=== PATIENT | female | born 1955 | race Caucasian/White ===

== ENCOUNTER 2017-12-06 17:54 | Inpatient (IN) | payer BC ==
[2017-12-06] MEDS ORDERED: VANCOMYCIN HCL INJ 1000 MG VIAL IV ONE ×2 (19:36→23:48)
--- NOTE | 2017-12-06 19:39 | ER Document Report ---
ED Medical Screen (RME) - General Chief Complaint: Foot Pain Stated Complaint: TOE PAIN Time Seen by Provider: 12/06/17 19:32 Notes: RAPID MEDICAL EVALUATION DISCLOSURE I have seen this patient as part of a Rapid Medical Evaluation and, if applicable, placed any initially appropriate orders. The patient will be seen and fully evaluated, including a full history and physical exam, by a provider ( in Main ED or Fast Track) when a room becomes available. 62-year-old female PMH diabetes here with complaints of right foot pain and infection. Approximately 5 days ago, she scratched the top of her right big toe and since then she has had progressively worsening redness, swelling, foul smell, and purulent discharge. She has a small ulcer on the bottom of the toe however everything else is a new change. EXAM Right big toe swollen, purulent discharge, moderate erythema, malodorous TRAVEL OUTSIDE OF THE [place] IN LAST 30 DAYS: No - Related Data Allergies/Adverse Reactions: dulaglutide [From Trulicity] Allergy (Verified 12/06/17 19:33) metformin Allergy (Verified 12/06/17 19:32) Penicillins Allergy (Verified 12/06/17 17:58) sitagliptin [From Janumet] Allergy (Verified 12/06/17 19:32) Physical Exam - Vital signs Vitals: Temp Pulse Resp BP Pulse Ox 98.9 F 93 18 178/95 H 94 12/06/17 18:39 12/06/17 18:39 12/06/17 18:39 12/06/17 18:39 12/06/17 18:39 Course - Vital Signs Vital signs: Temp Pulse Resp BP Pulse Ox 98.9 F 93 18 178/95 H 94 12/06/17 18:39 12/06/17 18:39 12/06/17 18:39 12/06/17 18:39 12/06/17 18:39
[2017-12-06 20:48] LABS: ABSOLUTE BASOPHILS # (AUTO) 0.1 10^3/uL (0.0-0.2); ABSOLUTE EOSINOPHILS # (AUTO) 0.3 10^3/uL (0.0-0.6); ABSOLUTE LYMPHOCYTES (AUTO) 1.4 10^3/uL (0.5-4.7); ABSOLUTE NEUT (AUTO) 7.9 10^3/uL (1.7-8.2); BASOPHILS % (AUTO) 0.5 % (0-2); EOSINOPHILS % (AUTO) 2.5 % (0-6); HEMATOCRIT 42.6 % (36.0-47.0); LYMPHOCYTES % (AUTO) 13.3 % (13-45); MEAN CORPUSCULAR HEMOGLOBIN 27.3 pg (27.0-33.4); MEAN CORPUSCULAR HGB CONC 32.9 g/dL (32.0-36.0); MEAN CORPUSCULAR VOLUME 83 fl (80-97); MONOCYTES % (AUTO) 9.3 % (3-13); PLATELET COUNT 298 10^3/uL (150-450); RED BLOOD COUNT 5.14 10^6/uL (3.72-5.28); RED CELL DISTRIBUTION WIDTH 14.4 % (11.5-14.0); SEGMENTED NEUTROPHILS % (AUTO) 74.4 % (42-78); TOTAL CELLS COUNTED % (AUTO) 100 %; WHITE BLOOD COUNT 10.7 10^3/uL (4.0-10.5)
[2017-12-06 21:06] LABS: ANION GAP 13 (5-19); BLOOD UREA NITROGEN 8 mg/dL (7-20); CALCIUM 9.3 mg/dL (8.4-10.2); CARBON DIOXIDE 32 mmol/L (22-30); CHLORIDE 97 mmol/L (98-107); GLUCOSE 214 mg/dL (75-110); POTASSIUM 4.1 mmol/L (3.6-5.0); SODIUM 141.9 mmol/L (137-145)
[2017-12-06 21:26] LABS: ERYTHROCYTE SEDIMENTATION RATE 57 mm/hr (0-30)
--- NOTE | 2017-12-06 22:35 | RADIOLOGY REPORT (SQ) ---
EXAM DESCRIPTION: FOOT LEFT COMPLETE COMPLETED DATE/TIME: 12/06/2017 9:22 pm REASON FOR STUDY: L big toe diabetic infection; osteomyelitis? COMPARISON: None. NUMBER OF VIEWS: Three views left foot LIMITATIONS: None. FINDINGS: Great toe MP DJD and hallux valgus. Pes planus. Soft tissue wound or ulcer along the gre at toe distally. No bone resorption. OTHER: No other significant finding. IMPRESSION: Soft tissue findings as above, consistent with the history of ulcer. No underlying oste omyelitis. Degenerative great toe changes are otherwise noted. TECHNICAL DOCUMENTATION: JOB ID: [id number] Reading location - IP/workstation name: [facility] PRODUCTION MANAGER-[email or web address]
[2017-12-06] MEDS ORDERED: CEFEPIME 2 GM/D5W RTU 2 GM/50 ML RTUPB IV ONE (23:48)
--- NOTE | 2017-12-06 23:55 | ER Document Report ---
ED General - General Chief Complaint: Foot Pain Stated Complaint: TOE PAIN Time Seen by Provider: 12/06/17 19:32 Notes: Patient is a 62-year-old female with a past medical history insulin-dependent diabetes, morbid obesity, who presents with per her report 4 days of progressively worsening wound to her left great toe. The patient reports that she scratched the top of her toe 4 days ago and since that time has had rapid progression of swelling, drainage and erythema to the toe with spreading redness onto the dorsum of her foot and now onto the tibial surface of her leg. She denies any associated fever or constitutional symptoms but notes that she has been alarmed by the rapidity with which the infection has spread. She was seen in urgent care today and referred to the emergency department due to the appearance of her toe. She denies any history of similar illness in the past. She states that she has been taking all medications as directed. She states that she has minimal sensation to her feet so she has only noted a mild, dull, aching pain to the area worsens when she walks or touches the area. Nothing improves that discomfort. She has noted significant drainage and odor from the wound on the left toe. TRAVEL OUTSIDE OF THE [place] IN LAST 30 DAYS: No - Related Data Allergies/Adverse Reactions: dulaglutide [From Trulicity] Allergy (Verified 12/06/17 19:33) metformin Allergy (Verified 12/06/17 19:32) Penicillins Allergy (Verified 12/06/17 17:58) sitagliptin [From Janumet] Allergy (Verified 12/06/17 19:32) Past Medical History - General Information source: Patient - Social History Smoking Status: Never Smoker Chew tobacco use (# tins/day): No Frequency of alcohol use: None Drug Abuse: None Lives with: Alone Family History: Reviewed & Not Pertinent Patient has suicidal ideation: No Patient has homicidal ideation: No Renal/ Medical History: Denies: Hx Peritoneal Dialysis Review of Systems - Review of Systems Notes: Constitutional: Negative for fever. HENT: Negative for sore throat. Eyes: Negative for visual changes. Cardiovascular: Negative for chest pain. Respiratory: Negative for shortness of breath. Gastrointestinal: Negative for abdominal pain, vomiting or diarrhea. Genitourinary: Negative for dysuria. Musculoskeletal: Negative for back pain. Skin: Positive for cellulitis with an associated open wound of the left great toe Neurological: Negative for headaches, weakness or numbness. 10 point ROS negative except as marked above and in HPI. Physical Exam - Vital signs Vitals: Temp Pulse Resp BP Pulse Ox 98.9 F 93 18 178/95 H 94 12/06/17 18:39 12/06/17 18:39 12/06/17 18:39 12/06/17 18:39 12/06/17 18:39 Interpretation: Hypertensive Notes: PHYSICAL EXAMINATION: GENERAL: Well-appearing, well-nourished and in no acute distress. HEAD: Atraumatic, normocephalic. EYES: Pupils equal round and reactive to light, extraocular movements intact, sclera anicteric, conjunctiva are normal. ENT: nares patent, oropharynx clear without exudates. Moist mucous membranes. NECK: Normal range of motion, supple without lymphadenopathy LUNGS: Breath sounds clear to auscultation bilaterally and equal. No wheezes rales or rhonchi. HEART: Regular rate and rhythm without murmurs ABDOMEN: Soft, morbidly obese abdomen, nontender, normoactive bowel sounds. No guarding, no rebound. No masses appreciated. EXTREMITIES: Normal range of motion, no pitting or edema. No cyanosis. NEUROLOGICAL: No focal neurological deficits. Moves all extremities spontaneously and on command. PSYCH: Normal mood, normal affect. SKIN: Warm, Dry, normal turgor, there is an open wound to the medial aspect of the left distal great toe with an underlying pressure ulcer on the plantar surface of the great toe. There is extensive liquefactive necrosis overlying the wound with drainage of a akers, brownish purulent discharge that is extremely malodorous. There is erythema extending from the toe over the entirety of the dorsum of the foot up to the distal one third of the tibial surface Course - Re-evaluation Re-evalutation: 12/06/17 23:49 Patient presents with what appears to be liquefactive necrosis of the left great toe with associated cellulitis that has spread up to her mid tibial surface. Patient is otherwise nontoxic in appearance, vitals within acceptable limits, mild leukocytosis to 10.8. I am fearful that the patient will require imitation of this toe as it appears to be markedly infected. We will start coverage for Pseudomonas as well as MRSA with vancomycin as well as cefepime. I have discussed with the surgeon professor of economics Dr. Rapp and expressed my concern that this will require surgical management for source control and will discuss with the hospitalist for admission. 12/07/17 00:00 Dr. Rapp has come to the bedside to assess the toe and will debride the wound. He states the patient may be admitted to the hospitalist thereafter - Vital Signs Vital signs: Temp Pulse Resp BP Pulse Ox 98.9 F 68 20 157/94 H 100 12/07/17 02:15 12/07/17 02:15 12/07/17 02:15 12/07/17 02:15 12/07/17 02:15 - Laboratory Result Diagrams: 12/06/17 20:10 12/06/17 20:10 Laboratory results interpreted by me: 12/06/17 12/06/17 20:10 20:10 WBC 10.7 H RDW 14.4 H ESR 57 H Chloride 97 L Carbon Dioxide 32 H Creatinine 0.49 L Glucose 214 H - Diagnostic Test Radiology reviewed: Image reviewed, Reports reviewed Radiology results interpreted by me: 12/06/17 23:51 Left foot x-ray: No evidence of osteomyelitis Discharge - Discharge Clinical Impression: Cellulitis of left foot Diabetes Qualifiers: Diabetes mellitus type: type 2 Diabetes mellitus residential insulin use: without laborer marine terminal use Diabetes mellitus complication status: with skin complications Diabetes mellitus complication detail: with other skin ulcer Qualified Code(s): E11.622 - Type 2 diabetes mellitus with other skin ulcer Open wound of left great toe Qualifiers: Encounter type: initial encounter Qualified Code(s): S91.102A - Unspecified open wound of left great toe without damage to nail, initial encounter Condition: Fair Disposition: ADMITTED INPATIENT Admitting Provider: Hospitalist Unit Admitted: Medical Floor
[2017-12-07] MEDS ORDERED: DEXTROSE 50%-WATER 25 GM/50 ML DISP.SYRIN IV PRN ×2 (00:17)
[2017-12-07] MEDS ORDERED: DEXTROSE 40% GEL 15 GM TUBE PO PRN ×2 (00:17)
[2017-12-07] MEDS ORDERED: GLUCAGON,HUMAN RECOMB 1 MG INJ IM PRN (00:17)
--- NOTE | 2017-12-07 00:37 | Operative Report ---
Operative Report DATE OF SURGERY: 12/07/17 PREOPERATIVE DIAGNOSIS: Liquefied necrosis left great toe POSTOPERATIVE DIAGNOSIS: Same OPERATION: Limited excisional debridement left great toe SURGEON: JANET DHILLON ANESTHESIA: Other TISSUE REMOVED OR ALTERED: tissue left toe COMPLICATIONS: None ESTIMATED BLOOD LOSS: None none INTRAOPERATIVE FINDINGS: See below PROCEDURE: Left great toe was exposed. Timeout conducted. Left great toe was noted to have liquefied necrotic skin and subcutaneous tissue going down to the fascia, possible periosteum of the medial aspect of the left great toe, specifically the distal phalanx. Skin and subcutaneous tissue was excised using 15 blade, tenotomy scissors. Culture sent. Wound irrigated with peroxide and packed open with the peroxide soaked gauze. 4 x 4's and Kerlix applied. Patient taught procedure well. Impression: Liquefied necrosis left great toe status post damage control debridement at bedside tonight Recommendations 1. Because patient was not n.p.o., we could not take to the operating tonight therefore a limited procedure was done at bedside. 2. We will keep patient n.p.o., and set her up for formal toe debridement possible toe amputation partial versus complete tomorrow, Dr. Anderson, main operating room. This was explained to the patient.
[2017-12-07] MEDS ORDERED: MAG HYDROX/AL HYDROX/SIMETH SUSP 30 ML UDCUP PO PRN (00:42)
[2017-12-07] MEDS ORDERED: ONDANSETRON HCL INJ/PF 4 MG/2 ML SDV IV PRN ×2 (00:42→11:31)
[2017-12-07] MEDS ORDERED: ACETAMINOPHEN 325 MG TABLET PO PRN (00:42)
[2017-12-07] MEDS ORDERED: IPRATROPIUM/ALBUTEROL 0.5-2.5 MG/3 ML AMPUL NEB PRN (00:42)
[2017-12-07] MEDS ORDERED: NORMAL SALINE 1000 ML 1,000 ML IV PRN ×2 (00:45→17:59)
[2017-12-07] MEDS ORDERED: VANCOMYCIN HCL 0 MG in DEXTROSE 5%-WATER 250 ML IV NR ×2 (00:45→18:15)
[2017-12-07] MEDS: HYDRALAZINE HCL INJ/PF 20 MG/1 ML SDV IV PRN ×2 (01:08→17:31)
[2017-12-07] MEDS: KETOROLAC TROMETHAMINE INJ/PF 30 MG/1 ML SDV IV PRN ×2 (03:00→20:32)
--- NOTE | 2017-12-07 06:06 | PDOC H&P ---
History of Present Illness Admission Date/PCP: 12/07/17 00:17 BEATRIZ TREVIZO MD Patient complains of: Left great toe ulcer History of Present Illness: RE BUSH is a 62 year old female with a history of diabetes, hypertension, marijuana and noncompliance. Patient presents with 5 days of erythema and itching to the toe but in conceivably patient denies noxious odor of necrosis currently present. She denies recent antibiotic use, regular Accu- Cheks or medications for diabetes or hypertension. In the emergency room she is found to have a putrid liquefied necrotic toe resulting in prompt surgical consultation for bedside debridement. Patient was started on empiric antibiotics refer to the hospitalist for admission. She denies pain. Past Medical History Endocrine Medical History: Reports: Diabetes Mellitus Type 2 Psychiatric Medical History: Reports: Substance Abuse Social History Information Source: Patient Lives with: Alone Smoking Status: Never Smoker Frequency of Alcohol Use: Occasional Hx Recreational Drug Use: No Drugs: Marijuana Hx Prescription Drug Abuse: No - Advance Directive Resuscitation Status: Full Code Family History Family History: CAD, CVA, Hypertension Parental Family History Reviewed: Yes Children Family History Reviewed: Yes Sibling(s) Family History Reviewed.: Yes Medication/Allergy Home Medications: No Home Medications 12/07/17 Allergies/Adverse Reactions: dulaglutide [From Trulicity] Allergy (Verified 12/06/17 19:33) metformin Allergy (Verified 12/06/17 19:32) Penicillins Allergy (Verified 12/06/17 17:58) sitagliptin [From Janumet] Allergy (Verified 12/06/17 19:32) Review of Systems Constitutional: ABSENT: chills, fever(s), headache(s), weight gain, weight loss Eyes: ABSENT: visual disturbances Ears: ABSENT: hearing changes Cardiovascular: ABSENT: chest pain, dyspnea on exertion, edema, orthropnea, palpitations Respiratory: ABSENT: cough, hemoptysis Gastrointestinal: ABSENT: abdominal pain, constipation, diarrhea, hematemesis, hematochezia, nausea, vomiting Genitourinary: ABSENT: dysuria, hematuria Musculoskeletal: ABSENT: joint swelling Integumentary: ABSENT: rash, wounds Neurological: ABSENT: abnormal gait, abnormal speech, confusion, dizziness, focal weakness, syncope Psychiatric: ABSENT: anxiety, depression, homidical ideation, suicidal ideation Endocrine: ABSENT: cold intolerance, heat intolerance, polydipsia, polyuria Hematologic/Lymphatic: ABSENT: easy bleeding, easy bruising Physical Exam Vital Signs: Temp Pulse Resp BP Pulse Ox 98.9 F 68 20 157/94 H 100 12/07/17 02:15 12/07/17 02:15 12/07/17 02:15 12/07/17 02:15 12/07/17 02:15 Intake & Output 12/05/17 12/06/17 12/07/17 11:59 11:59 11:59 Weight 272.94 kg General appearance: PRESENT: no acute distress, well-developed, well-nourished Head exam: PRESENT: atraumatic, normocephalic Eye exam: PRESENT: conjunctiva pink, EOMI, PERRLA. ABSENT: scleral icterus Ear exam: PRESENT: normal external ear exam Mouth exam: PRESENT: moist, tongue midline Neck exam: ABSENT: carotid bruit, JVD, lymphadenopathy, thyromegaly Respiratory exam: PRESENT: clear to auscultation byron. ABSENT: rales, rhonchi, wheezes Cardiovascular exam: PRESENT: RRR. ABSENT: diastolic murmur, rubs, systolic murmur Pulses: PRESENT: normal dorsalis pedis pul Vascular exam: PRESENT: normal capillary refill GI/Abdominal exam: PRESENT: normal bowel sounds, soft. ABSENT: distended, guarding, mass, organolmegaly, rebound, tenderness Rectal exam: PRESENT: deferred Extremities exam: PRESENT: full ROM, +1 edema - Left foot circumferentially erythemic, left great toe completely ulcerated. ABSENT: calf tenderness, clubbing, pedal edema Neurological exam: PRESENT: alert, awake, oriented to person, oriented to place , oriented to time, oriented to situation, CN II-XII grossly intact. ABSENT: motor sensory deficit Psychiatric exam: PRESENT: appropriate affect, normal mood. ABSENT: homicidal ideation, suicidal ideation Skin exam: PRESENT: erythema, warm, other. ABSENT: cyanosis, rash Results Impressions: Foot X-Ray 12/06/17 19:36 IMPRESSION: Soft tissue findings as above, consistent with the history of ulcer. No underlying osteomyelitis. Degenerative great toe changes are otherwise noted. Assessment & Plan - Diagnosis (1) Cellulitis of left foot Is this a current diagnosis for this admission?: Yes Plan: Border suggestive of Pseudomonas. Cefepime and vancomycin initiated. Follow- up blood and wound culture (2) Diabetes Qualifiers: Diabetes mellitus type: type 2 Diabetes mellitus ferry terminal agent insulin use: without chcf use Diabetes mellitus complication status: with skin complications Diabetes mellitus complication detail: with other skin ulcer Qualified Code(s): E11.622 - Type 2 diabetes mellitus with other skin ulcer Is this a current diagnosis for this admission?: Yes Plan: Obtain A1c, Humalog sliding scale every 6. Will trial 10-15 units of long- acting insulin twice daily (3) Open wound of left great toe Qualifiers: Encounter type: initial encounter Qualified Code(s): S91.102A - Unspecified open wound of left great toe without damage to nail, initial encounter Is this a current diagnosis for this admission?: Yes Plan: Surgical consultation - Time Time Spent: 30 to 50 Minutes - Inpatient Certification Medical Necessity: Need Close Monitoring Due to Risk of Patient Decompensation
[2017-12-07] MEDS: HEPARIN SOD (PORCINE) 5,000 UNIT/ML 1 ML SYRINGE SUBCUT SCH ×3 (06:17→22:16)
[2017-12-07] MEDS: INSULIN LISPRO 100 UNIT/ML 3 ML VIAL SUBCUT PRN ×3 (06:24→22:32)
[2017-12-07 06:32] LABS: ABSOLUTE BASOPHILS # (AUTO) 0.1 10^3/uL (0.0-0.2); ABSOLUTE EOSINOPHILS # (AUTO) 0.4 10^3/uL (0.0-0.6); ABSOLUTE LYMPHOCYTES (AUTO) 1.8 10^3/uL (0.5-4.7); ABSOLUTE MONOCYTES (AUTO) 0.9 10^3/uL (0.1-1.4); ABSOLUTE NEUT (AUTO) 6.1 10^3/uL (1.7-8.2); BASOPHILS % (AUTO) 0.6 % (0-2); EOSINOPHILS % (AUTO) 4.1 % (0-6); HEMATOCRIT 39.7 % (36.0-47.0); HEMOGLOBIN 12.9 g/dL (12.0-15.5); LYMPHOCYTES % (AUTO) 19.2 % (13-45); MEAN CORPUSCULAR HEMOGLOBIN 26.8 pg (27.0-33.4); MEAN CORPUSCULAR HGB CONC 32.6 g/dL (32.0-36.0); MEAN CORPUSCULAR VOLUME 82 fl (80-97); MONOCYTES % (AUTO) 9.6 % (3-13); PLATELET COUNT 267 10^3/uL (150-450); RED BLOOD COUNT 4.83 10^6/uL (3.72-5.28); RED CELL DISTRIBUTION WIDTH 14.1 % (11.5-14.0); SEGMENTED NEUTROPHILS % (AUTO) 66.5 % (42-78); TOTAL CELLS COUNTED % (AUTO) 100 %; WHITE BLOOD COUNT 9.2 10^3/uL (4.0-10.5)
--- NOTE | 2017-12-07 08:54 | EKG REPORT ---
SEVERITY:- NORMAL ECG - SINUS RHYTHM : Confirmed by: Cecilia Jacobo 07-Dec-2017 08:53:08
[2017-12-07] MEDS ORDERED: MIDAZOLAM 2 MG/2 ML INJ ONE (10:49)
[2017-12-07] MEDS ORDERED: FENTANYL CITRATE INJ/PF 100 MCG/2 ML AMPUL ONE ×2 (10:49→12:38)
[2017-12-07] MEDS ORDERED: PROPOFOL INJ 200 MG/20 ML VIAL IV ONE ×2 (10:50→11:53)
[2017-12-07] MEDS ORDERED: BUPIVACAINE HCL 0.25 % INJ/PF (2.5 MG/1 ML) 30 ML VIAL ONE (10:55)
[2017-12-07] MEDS: CEFEPIME 1 GM/D5W RTU 1 GM/50 ML RTUPB IV SCH ×2 (11:10→21:36)
[2017-12-07] MEDS ORDERED: BUPIVACAINE HCL 0.5 % INJ/PF 30 ML SDV ONE (11:25)
[2017-12-07] MEDS ORDERED: MEPERIDINE HCL/PF INJ 25 MG/1 ML DISP.SYRIN IV PRN (11:31)
[2017-12-07] MEDS ORDERED: DIPHENHYDRAMINE HCL 50 MG/ML VIAL IV PRN (11:31)
[2017-12-07] MEDS ORDERED: FENTANYL CITRATE INJ/PF 100 MCG/2 ML AMPUL IV PRN ×3 (11:31)
[2017-12-07] MEDS ORDERED: PROMETHAZINE HCL INJ 25 MG/1 ML VIAL IV PRN (11:31)
--- NOTE | 2017-12-07 12:26 | Operative Report ---
Nonrecallable Operative Report DATE OF SURGERY: 12/07/17 PREOPERATIVE DIAGNOSIS: gangrenous left great toe POSTOPERATIVE DIAGNOSIS: same OPERATION: left great toe amputation SURGEON: CELI CASTANEDA ANESTHESIA: Moderate Sedation - plus local 30 ml 0.5% marcaine TISSUE REMOVED OR ALTERED: left great toe COMPLICATIONS: none ESTIMATED BLOOD LOSS: 40 ml INTRAOPERATIVE FINDINGS: gangrenous left great toe PROCEDURE: see dictation
[2017-12-07] MEDS ORDERED: ACETAMINOPHEN 100 ML IV ONE (12:38)
--- NOTE | 2017-12-07 14:54 | OPERATIVE REPORT E ---
Operative Report NAME: RE BUSH : 1955 AGE: 62Y DATE OF SURGERY: 12/07/2017 ROOM: 206 PREOPERATIVE DIAGNOSIS: Gangrenous left great toe. POSTOPERATIVE DIAGNOSIS: Gangrenous left great toe. OPERATION: Left great toe amputation. SURGEON: CELI CASTANEDA M.D. ON LINE CSR: None. ANESTHESIA: Intravenous sedation/30 mL 0.5 Marcaine without epinephrine as local anesthetic. COMPLICATIONS: None. FLUIDS: 1200 mL crystalloid. DRAINS: Quarter inch [place]. INDICATIONS AND FINDINGS: This is a 62-year-old female admitted with a left gangrenous great toe. The patient was taken to surgery today to undergo amputation of the left great toe. PROCEDURE: The procedure was done in the operating room. The patient was placed in the supine position. Intravenous anesthesia provided by the anesthesiologist. The left great toe and left lower extremity was prepped and draped in the usual fashion. The tournique was placed in the left thigh. The left lower extremity was then prepped and draped in the usual fashion. The left foot and ankle was then exsanguinated with an Esmarch nband. The tourniquet was inflated to about 300 mmHg. The Esmarch band was then removed. A circumferential incision was made at the base of the left great toe, deepened with a #15 blade, deepened with Bovie down to the bone. After this was exposed, a periosteum elevator was used circumferentially to remove the subcutaneous tissue surrounding the great toe. This was then divided with an oscillating saw. After this was performed, the remaining portion of the proximal phalanx was then removed with the Bovie. The distal end of the first metatarsal ray was then approached with a rongeur and the joint surface was then removed with the instrument. This bone was then smoothed with a surgical file. The area was irrigated with normal saline. A large piece of bone wax was applied over the stump of the metatarsal ray and a quarter inch He drain was then laid flat on the entire length of the wound. The wound edges were then approximated with interrupted inverted 2-0 Vicryl sutures. Skin edges approximated with 2-0 nylon interrupted vertical mattress sutures. Xeroform and gauze were then applied over the wound, sterile ABDs and Kerlix were applied, followed by an José Luis bandage. The patient tolerated the procedure well. The tourniquet was then deflated. Tourniquet time 37 minutes The patient was transferred to the recovery room in satisfactory condition. DICTATING PHYSICIAN: CELI CASTANEDA M.D. [id number] PHY#: [id number] ID: [id number] JOB#: [id number] ACCT: [id number] cc:CELI CASTANEDA M.D. > MTDD
[2017-12-07] MEDS: HUM INSULIN NPH/REG INSULIN HM 100 UNIT/1 ML 3 ML SUBCUT SCH ×2 (15:35→17:30)
[2017-12-07] MEDS: DOCUSATE SODIUM 100 MG CAPSULE PO SCH ×2 (15:35→17:31)
--- NOTE | 2017-12-07 20:52 | Progress Note ---
Provider Note Provider Note: Agree with varnish inspector plan of care. Patient seen this afternoon on rounds following debridement of L great toe. Wrapped in Kerlix and amarilis bandage. +PMS to L foot. 1. CELLULITIS: Possibly pseudomonas, more likely to be polymicrobial (Gram negative & Gram positive). Continue Cefepime and Vancomycin. 2. OPEN WOUND TO L FOOT: Surgery consulted. Patient to OR today for wound debridement. Follow up with CBC in AM. Will likely need to follow up with [facility] post discharge. Appreciate surgery recommendations. 3. DIABETES:Accu-cheks ACHS. Carb consistent diet. Humalog sliding scale insulin. 4. HTN: Patient endorses history of borderline HTN. States her PMD started her on an unknown anti-HTN but it causes tinnitus, so she stopped taking the medication. Scheduled PO hydralazine and PRN IV hydralazine.
[2017-12-07] MEDS ORDERED: AMLODIPINE BESYLATE 5 MG TABLET PO SCH (22:00)
[2017-12-07] MEDS: VANCOMYCIN HCL 1,500 MG in DEXTROSE 5%-WATER 250 ML IV SCH (22:15)
[2017-12-08] MEDS: VANCOMYCIN HCL 1,500 MG in DEXTROSE 5%-WATER 250 ML IV SCH ×3 (05:20→22:59)
[2017-12-08] MEDS: HEPARIN SOD (PORCINE) 5,000 UNIT/ML 1 ML SYRINGE SUBCUT SCH ×3 (05:27→21:17)
[2017-12-08 06:31] LABS: ABSOLUTE BASOPHILS # (AUTO) 0.1 10^3/uL (0.0-0.2); ABSOLUTE EOSINOPHILS # (AUTO) 0.4 10^3/uL (0.0-0.6); ABSOLUTE LYMPHOCYTES (AUTO) 1.8 10^3/uL (0.5-4.7); ABSOLUTE MONOCYTES (AUTO) 0.9 10^3/uL (0.1-1.4); ABSOLUTE NEUT (AUTO) 6.4 10^3/uL (1.7-8.2); BASOPHILS % (AUTO) 0.9 % (0-2); EOSINOPHILS % (AUTO) 4.4 % (0-6); HEMOGLOBIN 12.4 g/dL (12.0-15.5); LYMPHOCYTES % (AUTO) 18.9 % (13-45); MEAN CORPUSCULAR HEMOGLOBIN 27.6 pg (27.0-33.4); MEAN CORPUSCULAR HGB CONC 33.5 g/dL (32.0-36.0); MEAN CORPUSCULAR VOLUME 82 fl (80-97); MONOCYTES % (AUTO) 9.1 % (3-13); PLATELET COUNT 268 10^3/uL (150-450); RED BLOOD COUNT 4.49 10^6/uL (3.72-5.28); RED CELL DISTRIBUTION WIDTH 14.2 % (11.5-14.0); SEGMENTED NEUTROPHILS % (AUTO) 66.7 % (42-78); TOTAL CELLS COUNTED % (AUTO) 100 %; WHITE BLOOD COUNT 9.5 10^3/uL (4.0-10.5)
[2017-12-08 06:47] LABS: ANION GAP 10 (5-19); BLOOD UREA NITROGEN 7 mg/dL (7-20); CALCIUM 8.7 mg/dL (8.4-10.2); CARBON DIOXIDE 31 mmol/L (22-30); CHLORIDE 101 mmol/L (98-107); GLUCOSE 178 mg/dL (75-110); PHOSPHORUS 4.4 mg/dL (2.5-4.5); POTASSIUM 3.8 mmol/L (3.6-5.0); SODIUM 141.6 mmol/L (137-145)
[2017-12-08] MEDS ORDERED: AMLODIPINE BESYLATE 5 MG TABLET PO ONE (08:00)
[2017-12-08] MEDS ORDERED: AMLODIPINE BESYLATE 5 MG TABLET PO SCH (08:00)
[2017-12-08] MEDS: HUM INSULIN NPH/REG INSULIN HM 100 UNIT/1 ML 3 ML SUBCUT SCH ×2 (08:25→17:02)
[2017-12-08] MEDS: CEFEPIME 1 GM/D5W RTU 1 GM/50 ML RTUPB IV SCH ×2 (10:51→21:18)
[2017-12-08] MEDS: DOCUSATE SODIUM 100 MG CAPSULE PO SCH ×2 (10:51→17:21)
[2017-12-08] MEDS: INSULIN LISPRO 100 UNIT/ML 3 ML VIAL SUBCUT PRN ×3 (12:28→22:59)
--- NOTE | 2017-12-08 13:02 | PDOC PROGRESS REPORT ---
Subjective Progress Note for:: 12/08/17 Subjective:: no c/o Reason For Visit: L GREAT TOE DIABETIC ULCER AND CELLULITIS Physical Exam Vital Signs: Temp Pulse Resp BP Pulse Ox 98.5 F 66 18 152/76 H 95 12/08/17 09:40 12/08/17 09:40 12/08/17 09:40 12/08/17 09:40 12/08/17 09:40 Intake & Output 12/07/17 12/08/17 12/09/17 06:59 06:59 06:59 Intake Total 3215 Output Total 725 Balance 2490 Weight 273 kg 123.5 kg General appearance: PRESENT: no acute distress, cooperative Extremities exam: PRESENT: other - left foot: surgical wound clean, no odor, slight separation of edges, dried blood on dressings, erythema of wound edges Results Laboratory Results: 12/08/17 06:11 12/08/17 06:11 12/08/17 12/08/17 06:11 06:11 WBC 9.5 RBC 4.49 Hgb 12.4 Hct 37.0 MCV 82 MCH 27.6 MCHC 33.5 RDW 14.2 H Plt Count 268 Seg Neutrophils % 66.7 Lymphocytes % 18.9 Monocytes % 9.1 Eosinophils % 4.4 Basophils % 0.9 Absolute Neutrophils 6.4 Absolute Lymphocytes 1.8 Absolute Monocytes 0.9 Absolute Eosinophils 0.4 Absolute Basophils 0.1 Sodium 141.6 Potassium 3.8 Chloride 101 Carbon Dioxide 31 H Anion Gap 10 BUN 7 Creatinine 0.53 Est GFR ( Amer) > 60 Est GFR (Non-Af Amer) > 60 Glucose 178 H Calcium 8.7 Phosphorus 4.4 Magnesium 2.0 12/08/17 12/08/17 10:33 10:33 Creatine Kinase 50 Troponin I < 0.012 Impressions: Foot X-Ray 12/06/17 19:36 IMPRESSION: Soft tissue findings as above, consistent with the history of ulcer. No underlying osteomyelitis. Degenerative great toe changes are otherwise noted. Assessment & Plan - Diagnosis (1) Cellulitis of left foot Is this a current diagnosis for this admission?: Yes (2) Open wound of left great toe Qualifiers: Encounter type: initial encounter Qualified Code(s): S91.102A - Unspecified open wound of left great toe without damage to nail, initial encounter Is this a current diagnosis for this admission?: Yes - Plan Summary Plan Summary: A/ POD#1 after left great toe amputation VSS, AF Blood work WNL Intraoperative cultures demonstrate GPC, streptococcus and skin oralia Wound clean erytheam of edges, with edema P/ Continue left foot elevation and no weight bearing Continue Vanco/maxepime Patient to be discharged once final culture / sensitivity results are available
[2017-12-08] MEDS ORDERED: KETOROLAC TROMETHAMINE 10 MG TABLET PO PRN (13:04)
--- NOTE | 2017-12-08 15:32 | PDOC PROGRESS REPORT ---
Subjective Progress Note for:: 12/08/17 Subjective:: RE BUSH is a 62 year old female with a PMH of HTN, diabetes, marijuana use. The patient presented to the emergency department on 12/07/2017 for a ulcer on the left great toe. The patient was started on empiric antibiotics in the emergency department and was taken to the OR yesterday for tissue debridement and amputation. She is now POD#1 from partial L great toe amputation. Patient was seen this morning on rounds, she is resting comfortably in bed on room air. The patient denies pain or parasthesia to the L foot, and denies fever or chills. She remains NWB on the L foot however the patient did not comply with orders and walked to the restroom this morning. Since she has been at [facility], her BP has been slightly elevated. The patient endorses a history of noncompliance with anti-HTN medication. She was started on Norvasc last night. The patient reports that after receiving the dose of Norvasc she felt a chest heaviness and became diaphoretic. She did not report this to the nursing staff, however this morning when her blood pressure was still elevated and she received a second dose of Norvasc, she began experiencing chest pain and diaphoresis again. This time, the patient reported her symptoms to the nursing staff. Stat EKG was performed, demonstrates NSR, no evidence of acute ischemia or infarction. Troponin <0.012. Reason For Visit: L GREAT TOE DIABETIC ULCER AND CELLULITIS Physical Exam Vital Signs: Temp Pulse Resp BP Pulse Ox 98.5 F 64 16 152/76 H 97 12/08/17 09:40 12/08/17 13:28 12/08/17 13:28 12/08/17 09:40 12/08/17 13:28 Intake & Output 12/07/17 12/08/17 12/09/17 06:59 06:59 06:59 Intake Total 3215 Output Total 725 Balance 2490 Weight 273 kg 123.5 kg General appearance: PRESENT: no acute distress Head exam: PRESENT: atraumatic Eye exam: PRESENT: conjunctiva pink, PERRLA Mouth exam: PRESENT: moist Neck exam: PRESENT: full ROM Respiratory exam: PRESENT: clear to auscultation byron, symmetrical, unlabored Cardiovascular exam: PRESENT: +S1, +S2 Pulses: PRESENT: normal radial pulses, normal dorsalis pedis pul - on the R foot. inable to assess on L foot secondary to surgical dressing GI/Abdominal exam: PRESENT: normal bowel sounds, soft. ABSENT: tenderness Rectal exam: PRESENT: deferred Extremities exam: PRESENT: full ROM. ABSENT: joint swelling, pedal edema Musculoskeletal exam: PRESENT: ambulatory, full ROM, other - R great toe amputation. Good capillary refill in exposed toes. No evidence of erythema or streaking to R leg Neurological exam: PRESENT: alert, awake, oriented to person, oriented to place , oriented to time, oriented to situation Psychiatric exam: PRESENT: appropriate affect Skin exam: PRESENT: dry, intact, normal color Results Laboratory Results: 12/08/17 06:11 12/08/17 06:11 12/08/17 12/08/17 06:11 06:11 WBC 9.5 RBC 4.49 Hgb 12.4 Hct 37.0 MCV 82 MCH 27.6 MCHC 33.5 RDW 14.2 H Plt Count 268 Seg Neutrophils % 66.7 Lymphocytes % 18.9 Monocytes % 9.1 Eosinophils % 4.4 Basophils % 0.9 Absolute Neutrophils 6.4 Absolute Lymphocytes 1.8 Absolute Monocytes 0.9 Absolute Eosinophils 0.4 Absolute Basophils 0.1 Sodium 141.6 Potassium 3.8 Chloride 101 Carbon Dioxide 31 H Anion Gap 10 BUN 7 Creatinine 0.53 Est GFR ( Amer) > 60 Est GFR (Non-Af Amer) > 60 Glucose 178 H Calcium 8.7 Phosphorus 4.4 Magnesium 2.0 12/08/17 12/08/17 10:33 10:33 Creatine Kinase 50 Troponin I < 0.012 Impressions: Foot X-Ray 12/06/17 19:36 IMPRESSION: Soft tissue findings as above, consistent with the history of ulcer. No underlying osteomyelitis. Degenerative great toe changes are otherwise noted. Status: Imported from PACS Assessment & Plan - Diagnosis (1) Cellulitis of left foot Is this a current diagnosis for this admission?: Yes Plan: Cellulitis secondary to open wound on left great toe, preliminary wound cultures are positive for GNR. Currently awaiting culture sensitivities. Plan to wrap left foot daily We will need follow-up to [facility] wound care clinic post discharge. (2) Open wound of left great toe Qualifiers: Encounter type: initial encounter Qualified Code(s): S91.102A - Unspecified open wound of left great toe without damage to nail, initial encounter Is this a current diagnosis for this admission?: Yes Plan: POD#1 wound debridement and partial amputation of left great toe. Surgeon stated that the bone appeared healthy, he did not suspect osteomyelitis. No plan for MRI at this time. The affected area wrapped in Kerlix and José Luis bandage. Continue IV antibiotics. (3) Diabetes Qualifiers: Diabetes mellitus type: type 2 Diabetes mellitus longterm insulin use: without lobsterman use Diabetes mellitus complication status: with skin complications Diabetes mellitus complication detail: with other skin ulcer Qualified Code(s): E11.622 - Type 2 diabetes mellitus with other skin ulcer Is this a current diagnosis for this admission?: Yes Plan: The patient endorses history of diabetes. Accu-Cheks before meals at bedtime. Carb consistent diet. Humalog sliding scale insulin (4) HTN (hypertension) Qualifiers: Hypertension type: essential hypertension Qualified Code(s): I10 - Essential (primary) hypertension Is this a current diagnosis for this admission?: Yes Plan: Resolving. Patient endorses a history of HTN but states she has been noncompliant with anti-HTN medications. While at [facility], her SBP ranges 145-165 Initially placed patient on Norvasc, however the patient reported episodes of chest heaviness and diaphoresis within 1 hour of ingesting medication. Her Norvasc has since been discontinued. Initiated lisinopril nightly. (5) Chest pain Qualifiers: Chest pain type: unspecified Qualified Code(s): R07.9 - Chest pain, unspecified Is this a current diagnosis for this admission?: Yes Plan: The patient reported chest 'heaviness' following administration of Norvasc. EKG showed NSR with no evidence of acute ischemia or infarction. Chest pain had resolved by the time of my assessment. STAT troponin < 0.012, will continue to trend 2 Norvasc discontinued. Initiate Lisinopril for blood pressure management - Time Time Spent with patient: 15-24 minutes Smoking Cessation Education: 3 to 10 minutes Medications reviewed and adjusted accordingly: Yes Anticipated discharge: Home with Homehealth - Inpatient Certification Based on my medical assessment, after consideration of the patient's comorbidities, presenting symptoms, or acuity I expect that the services needed warrant INPATIENT care.: Yes I certify that my determination is in accordance with my understanding of Medicare's requirements for reasonable and necessary INPATIENT services [42 CFR 412.3e].: Yes Medical Necessity: Risk of Complication if Not Cared For in Hospital - Plan Summary Plan Summary: Plan to discharge home once wound cultures and sensitivities have resulted.
[2017-12-08] MEDS ORDERED: AMLODIPINE BESYLATE 10 MG TABLET PO SCH (22:00)
--- NOTE | 2017-12-08 22:43 | EKG REPORT ---
SEVERITY:- NORMAL ECG - SINUS RHYTHM : Confirmed by: Cecilia Jacobo 08-Dec-2017 19:42:49
[2017-12-09] MEDS: HYDRALAZINE HCL INJ/PF 20 MG/1 ML SDV IV PRN (05:03)
[2017-12-09] MEDS: VANCOMYCIN HCL 1,500 MG in DEXTROSE 5%-WATER 250 ML IV SCH (06:11)
[2017-12-09] MEDS: HEPARIN SOD (PORCINE) 5,000 UNIT/ML 1 ML SYRINGE SUBCUT SCH ×3 (06:25→22:32)
[2017-12-09 06:37] LABS: VANCOMYCIN,TROUGH 17.3 ug/mL (5.0-20.0)
[2017-12-09] MEDS: HUM INSULIN NPH/REG INSULIN HM 100 UNIT/1 ML 3 ML SUBCUT SCH ×2 (08:04→17:59)
[2017-12-09] MEDS: CEFEPIME 1 GM/D5W RTU 1 GM/50 ML RTUPB IV SCH ×2 (09:12→22:20)
[2017-12-09] MEDS: DOCUSATE SODIUM 100 MG CAPSULE PO SCH ×2 (09:12→18:07)
[2017-12-09 09:18] LABS: HEMATOCRIT 40.5 % (36.0-47.0); HEMOGLOBIN 12.9 g/dL (12.0-15.5); MEAN CORPUSCULAR HEMOGLOBIN 26.6 pg (27.0-33.4); MEAN CORPUSCULAR HGB CONC 31.9 g/dL (32.0-36.0); MEAN CORPUSCULAR VOLUME 84 fl (80-97); PLATELET COUNT 332 10^3/uL (150-450); RED BLOOD COUNT 4.85 10^6/uL (3.72-5.28); RED CELL DISTRIBUTION WIDTH 14.4 % (11.5-14.0); WHITE BLOOD COUNT 11.4 10^3/uL (4.0-10.5)
--- NOTE | 2017-12-09 10:02 | PDOC PROGRESS REPORT ---
Subjective Progress Note for:: 12/09/17 Subjective:: No c/o patient denies left foot pain Reason For Visit: L GREAT TOE DIABETIC ULCER AND CELLULITIS Physical Exam Vital Signs: Temp Pulse Resp BP Pulse Ox 98.1 F 58 L 17 153/63 H 96 12/09/17 07:34 12/09/17 07:34 12/09/17 07:34 12/09/17 07:34 12/09/17 07:34 Intake & Output 12/08/17 12/09/17 12/10/17 06:59 06:59 06:59 Intake Total 3215 360 Output Total 725 400 600 Balance 2490 -400 -240 Weight 123.5 kg 123.5 kg Extremities exam: PRESENT: other - left foot: diffuse edema, amputation wound clean, slightly draining serous fluid, no odor, no tenderness, He drain in place, wound edges slightly in between sutures, lower flap pink, ujper flap erythematous Results Laboratory Results: 12/09/17 05:50 12/08/17 10:33 12/08/17 12/09/17 10:33 05:50 WBC 11.4 H RBC 4.85 Hgb 12.9 Hct 40.5 MCV 84 MCH 26.6 L MCHC 31.9 L RDW 14.4 H Plt Count 332 Creatinine 0.52 Est GFR ( Amer) > 60 Est GFR (Non-Af Amer) > 60 12/08/17 12/08/17 10:33 10:33 Creatine Kinase 50 Troponin I < 0.012 Impressions: Foot X-Ray 12/06/17 19:36 IMPRESSION: Soft tissue findings as above, consistent with the history of ulcer. No underlying osteomyelitis. Degenerative great toe changes are otherwise noted. Assessment & Plan - Diagnosis (1) Cellulitis of left foot Is this a current diagnosis for this admission?: Yes - Plan Summary Plan Summary: A/ POD #2 after left great toe amputation for gangrene Cellulits left foot receding, persistent edema Overall appearance of the left foot great toe amputation site improved Cx preliminary for streptococcus, sensitivity and final pending P/ continue left foot elevation discharge from hospital once cx are available
[2017-12-09] MEDS: INSULIN LISPRO 100 UNIT/ML 3 ML VIAL SUBCUT PRN ×2 (12:33→22:34)
[2017-12-09] MEDS ORDERED: LISINOPRIL 10 MG TABLET PO ONE (14:00)
[2017-12-09] MEDS: VANCOMYCIN HCL 1,000 MG in DEXTROSE 5%-WATER 250 ML IV SCH ×2 (14:45→22:38)
--- NOTE | 2017-12-09 14:45 | PDOC PROGRESS REPORT ---
Subjective Progress Note for:: 12/09/17 Subjective:: RE BUSH is a 62 year old female with a PMH of HTN, diabetes, marijuana use. The patient presented to the emergency department on 12/07/2017 for a ulcer on the left great toe. The patient was started on empiric antibiotics in the emergency department and was taken to the OR yesterday for tissue debridement and amputation. She is now POD#1 from partial L great toe amputation. Patient was seen this morning on rounds, she is resting comfortably in bed on room air. The patient denies pain or parasthesia to the L foot, and denies fever or chills. She remains NWB on the L foot. Her BP remains elevated (SBP 145 -165), will trial PO lisinopril today. Reason For Visit: L GREAT TOE DIABETIC ULCER AND CELLULITIS Physical Exam Vital Signs: Temp Pulse Resp BP Pulse Ox 98.0 F 62 17 164/75 H 95 12/09/17 11:39 12/09/17 11:39 12/09/17 11:39 12/09/17 11:39 12/09/17 11:39 Intake & Output 12/08/17 12/09/17 12/10/17 06:59 06:59 06:59 Intake Total 3215 360 Output Total 725 400 600 Balance 2490 -400 -240 Weight 123.5 kg 123.5 kg General appearance: PRESENT: no acute distress Eye exam: PRESENT: conjunctiva pink Mouth exam: PRESENT: moist Neck exam: PRESENT: full ROM Respiratory exam: PRESENT: symmetrical, unlabored Cardiovascular exam: PRESENT: +S1, +S2 Pulses: PRESENT: normal radial pulses Vascular exam: PRESENT: normal capillary refill. ABSENT: pallor GI/Abdominal exam: PRESENT: soft. ABSENT: tenderness Rectal exam: PRESENT: deferred Extremities exam: PRESENT: full ROM - with exception of L foot. ABSENT: pedal edema Musculoskeletal exam: PRESENT: ambulatory - NWB L foot Neurological exam: PRESENT: alert, awake, oriented to person, oriented to place , oriented to time, oriented to situation. ABSENT: normal gait - NWB L FOOT Psychiatric exam: PRESENT: appropriate affect Skin exam: PRESENT: intact, normal color Results Laboratory Results: 12/09/17 05:50 12/08/17 10:33 12/08/17 12/09/17 10:33 05:50 WBC 11.4 H RBC 4.85 Hgb 12.9 Hct 40.5 MCV 84 MCH 26.6 L MCHC 31.9 L RDW 14.4 H Plt Count 332 Creatinine 0.52 Est GFR ( Amer) > 60 Est GFR (Non-Af Amer) > 60 12/08/17 12/08/17 10:33 10:33 Creatine Kinase 50 Troponin I < 0.012 Impressions: Foot X-Ray 12/06/17 19:36 IMPRESSION: Soft tissue findings as above, consistent with the history of ulcer. No underlying osteomyelitis. Degenerative great toe changes are otherwise noted. Status: Imported from PACS Assessment & Plan - Diagnosis (1) Cellulitis of left foot Is this a current diagnosis for this admission?: Yes Plan: Cellulitis secondary to open wound on left great toe, preliminary wound cultures are positive for gram-positive cocci. Currently awaiting culture sensitivities. Plan to wrap left foot daily We will need follow-up to [facility] wound care clinic post discharge. (2) Open wound of left great toe Qualifiers: Encounter type: initial encounter Qualified Code(s): S91.102A - Unspecified open wound of left great toe without damage to nail, initial encounter Is this a current diagnosis for this admission?: Yes Plan: POD#2 wound debridement and partial amputation of left great toe. Surgeon stated that the bone appeared healthy, he did not suspect osteomyelitis. No plan for MRI at this time. No leukocytosis. Patient is afebrile and nontoxic-appearing. The affected area wrapped in Kerlix and José Luis bandage. Continue IV antibiotics. 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 Accu-Cheks before meals at bedtime. Carb consistent diet. Humalog sliding scale insulin Patient admits to being non-compliant with all medical care, will check HgbA1c in AM (4) HTN (hypertension) Qualifiers: Hypertension type: essential hypertension Qualified Code(s): I10 - Essential (primary) hypertension Is this a current diagnosis for this admission?: Yes Plan: Resolving. Patient endorses a history of HTN but states she has been noncompliant with anti-HTN medications. While at [facility], her SBP ranges 145-165 Initially placed patient on Norvasc, however the patient reported episodes of chest heaviness and diaphoresis within 1 hour of ingesting medication. Her Norvasc has since been discontinued. Will trial lisinopril PO PRN Hydralazine IV for SBP > 160 (5) Chest pain Qualifiers: Chest pain type: unspecified Qualified Code(s): R07.9 - Chest pain, unspecified Is this a current diagnosis for this admission?: Yes Plan: Resolved. The patient reported chest 'heaviness' following administration of Norvasc yesterday EKG showed NSR with no evidence of acute ischemia or infarction. Chest pain had resolved by the time of my assessment. Serial troponin < 0.012, no longer trending Norvasc discontinued. Lisinopril for blood pressure management. PRN Hydralazine IV for SBP>160 - Time Time Spent with patient: 15-24 minutes Medications reviewed and adjusted accordingly: Yes Anticipated discharge: Home - Inpatient Certification Based on my medical assessment, after consideration of the patient's comorbidities, presenting symptoms, or acuity I expect that the services needed warrant INPATIENT care.: Yes I certify that my determination is in accordance with my understanding of Medicare's requirements for reasonable and necessary INPATIENT services [42 CFR 412.3e].: Yes Medical Necessity: Need for IV Antibiotics, Risk of Complication if Not Cared For in Hospital - Plan Summary Plan Summary: Plan to discharge home with antibiotics following culture sensitivities
[2017-12-10] MEDS: VANCOMYCIN HCL 1,000 MG in DEXTROSE 5%-WATER 250 ML IV SCH (05:43)
[2017-12-10] MEDS: HEPARIN SOD (PORCINE) 5,000 UNIT/ML 1 ML SYRINGE SUBCUT SCH ×2 (05:43→18:07)
[2017-12-10 06:32] LABS: HEMATOCRIT 35.7 % (36.0-47.0); HEMOGLOBIN 11.7 g/dL (12.0-15.5); MEAN CORPUSCULAR HEMOGLOBIN 27.1 pg (27.0-33.4); MEAN CORPUSCULAR HGB CONC 32.9 g/dL (32.0-36.0); MEAN CORPUSCULAR VOLUME 83 fl (80-97); PLATELET COUNT 308 10^3/uL (150-450); RED BLOOD COUNT 4.33 10^6/uL (3.72-5.28); RED CELL DISTRIBUTION WIDTH 14.3 % (11.5-14.0); WHITE BLOOD COUNT 9.6 10^3/uL (4.0-10.5)
[2017-12-10] MEDS: CEFEPIME 1 GM/D5W RTU 1 GM/50 ML RTUPB IV SCH (09:05)
[2017-12-10] MEDS: HUM INSULIN NPH/REG INSULIN HM 100 UNIT/1 ML 3 ML SUBCUT SCH ×2 (09:05→16:54)
[2017-12-10] MEDS: DOCUSATE SODIUM 100 MG CAPSULE PO SCH ×2 (09:06→18:07)
--- NOTE | 2017-12-10 09:32 | PDOC PROGRESS REPORT ---
Subjective Progress Note for:: 12/10/17 Subjective:: No c/o Reason For Visit: L GREAT TOE DIABETIC ULCER AND CELLULITIS Physical Exam Vital Signs: Temp Pulse Resp BP Pulse Ox 97.8 F 63 17 166/88 H 96 12/10/17 08:32 12/10/17 08:32 12/10/17 08:32 12/10/17 08:32 12/10/17 08:32 Intake & Output 12/09/17 12/10/17 12/11/17 06:59 06:59 06:59 Intake Total 960 Output Total 400 600 Balance -400 360 Weight 123.5 kg 123.5 kg Skin exam: PRESENT: other - Left foot: decreased erythema of wound skin edge, minimal serous drainage, wound edges slightly , no odor Results Laboratory Results: 12/10/17 06:06 12/08/17 10:33 12/10/17 06:06 WBC 9.6 RBC 4.33 Hgb 11.7 L Hct 35.7 L MCV 83 MCH 27.1 MCHC 32.9 RDW 14.3 H Plt Count 308 12/07/17 00:20 Toe - Diabetic Ulcer Gram Stain - Final 12/07/17 00:20 Toe - Diabetic Ulcer Wound Culture - Final Staphylococcus Aureus Group B Beta Streptococcus Skin Diana 12/08/17 12/08/17 10:33 10:33 Creatine Kinase 50 Troponin I < 0.012 Impressions: Foot X-Ray 12/06/17 19:36 IMPRESSION: Soft tissue findings as above, consistent with the history of ulcer. No underlying osteomyelitis. Degenerative great toe changes are otherwise noted. Assessment & Plan - Diagnosis (1) Cellulitis of left foot Is this a current diagnosis for this admission?: Yes - Plan Summary Plan Summary: A/ POD#2 after left great toe amputation for gangrene Wound improved Cx positive for streptococcus P/ Discharge today LLE elevation as much as possible NO Left foot weight bearing x 4 weeks, then start with weight bearing on the left heel only Sponge bath only until wound is healed and sutures are out replace Left foot dressing daily: remove old bandages, apply 1 inch triple antibiotic ointment to wound eedge, cover with dry sponges, Kerlix roll, ERENDIRA bandage Return to surgical office next week with Dr. Queen Cipro 500 mg po BID x 14 days Flagyl 500 mg po TID x 14 days Yogurt and MVI daily to prevent diarrhea
[2017-12-10] MEDS ORDERED: LISINOPRIL 10 MG TABLET PO SCH (10:00)
[2017-12-10] MEDS: INSULIN LISPRO 100 UNIT/ML 3 ML VIAL SUBCUT PRN (12:27)
[2017-12-10] MEDS: HYDRALAZINE HCL INJ/PF 20 MG/1 ML SDV IV PRN (12:27)
[2017-12-10] MEDS ORDERED: LISINOPRIL 10 MG TABLET PO ONE (14:30)
[2017-12-10] MEDS ORDERED: LEVOFLOXACIN 750 MG TABLET PO ONE (16:00)
[2017-12-10] MEDS ORDERED: CEFAZOLIN 1 GM/D5W RTU 1 GM/50 ML RTUPB IV SCH (18:00)
[2017-12-10 18:21] VITALS: BP 152/70
--- NOTE | 2017-12-13 12:57 | OPERATIVE REPORT E ---
Operative Report NAME: RE BUSH : 1955 AGE: 62Y DATE OF SURGERY: 12/07/2017 ROOM: 206 ADDENDUM: The type of debridement was sharp debridement using tenotomy scissors and 15 blade. The size was approximately 4 x 4 x 3, with necrotic skin and subcutaneous tissue and superficial fascia removed. This was down to the superficial fascia. Cubic volume of tissue removed was approximately 25 cubic centimeters. DICTATING PHYSICIAN: JANET DHILLON M.D. [id number] PHY#: [id number] ID: [id number] JOB#: [id number] ACCT: [id number] cc:JANET DHILLON M.D. >
--- NOTE | 2017-12-14 14:01 | PDOC DISCHARGE SUMMARY ---
General - Admit/Disc Date/PCP Admission Date/Primary Care Provider: 12/07/17 00:17 Discharge Date: 12/10/17 - Discharge Diagnosis (1) Cellulitis of left foot Is this a current diagnosis for this admission?: Yes (2) Open wound of left great toe Is this a current diagnosis for this admission?: Yes (3) Diabetes Is this a current diagnosis for this admission?: Yes (4) HTN (hypertension) Is this a current diagnosis for this admission?: Yes (5) Chest pain Is this a current diagnosis for this admission?: Yes - Additional Information Resuscitation Status: Full Code Discharge Diet: Diabetic Discharge Activity: Keep Legs Elevated, No tub bath, Other Prescriptions: Levofloxacin [Levaquin 750 mg Tablet] 750 mg PO DAILY #21 tab Lisinopril 20 mg PO DAILY #30 tablet Metronidazole 500 mg PO TID #21 tablet Home Medications: Multivitamin [Daily Multiple Vitamin] 1 tab PO DAILY 12/07/17 Levofloxacin [Levaquin 750 mg Tablet] 750 mg PO DAILY #21 tab 12/10/17 Lisinopril 20 mg PO DAILY #30 tablet 12/10/17 Metronidazole 500 mg PO TID #21 tablet 12/10/17 History of Present Illness History of Present Illness: RE BUSH is a 62 year old female with a history of diabetes, hypertension, marijuana and noncompliance. Patient presents with 5 days of erythema and itching to the toe but in conceivably patient denies noxious odor of necrosis currently present. She denies recent antibiotic use, regular Accu- Cheks or medications for diabetes or hypertension. In the emergency room she is found to have a putrid liquefied necrotic toe resulting in prompt surgical consultation for bedside debridement. Patient was started on empiric antibiotics refer to the hospitalist for admission. She denies pain. Hospital Course Hospital Course: The patient was admitted to the hospitalist service for cellulitis secondary to open wound on left great toe. Surgery was consulted. The patient was empirically placed on vancomycin and Zosyn while blood and wound cultures resulted. Dr. Anderson performed a partial amputation of the left great toe and wound debridement. Surgeon stated that the bone appeared healthy, he did not suspect osteomyelitis. No MRI was performed. The affected area wrapped in Kerlix and José Luis bandage and daily dressing changes were done by the surgeon. The wound cultures eventually grew out MSSA and the patient was sent home with prescriptions for PO Levaquin and Flagyl. The patient was instructed to follow- up with [facility] wound care clinic post discharge. Additionally , she was given very specific instructions from Dr. Anderson: LLE elevation as much as possible, NO Left foot weight bearing x 4 weeks, then start with weight bearing on the left heel only. Sponge bath only until wound is healed and sutures are out. Replace Left foot dressing daily: remove old bandages, apply 1 inch triple antibiotic ointment to wound edge, cover with dry sponges, Kerlix roll, JOSÉ LUIS bandage. In addition to these instructions, the patient was sent home with a CAM walker to elevate her left foot and maintain NWB status while she ambulates. The patient did not want crutches because she stated they were too hard to maneuver and she was afraid she would fall. While she was inpatient, the patient admitted to noncompliance with her hypertension and diabetes management. HgbA1c 9.5. The patient met with the program project manager while she was here and given instructions on lifestyle modifications as well as appropriate medical management of her diabetes. The patient was sent home with prescriptions for Humalog pen, NPH 70/30, new Accu- Chek machine with test strips and lancets. In regards to her hypertension, the patient reportedly stopped taking her prescribed beta-susan because she did not like "the way it made her feel." While at [facility], her SBP ranges 145-165. Initially placed patient on Norvasc, however the patient reported episodes of chest heaviness and diaphoresis within 1 hour of ingesting medication. Norvasc was discontinued and attempted a trial of p.o. lisinopril which seemed to achieve better blood pressure control without side effects. The patient was discharged home with a prescription for p.o. lisinopril and strict instructions to follow-up with her primary care doctor. Physical Exam Vital Signs: Temp Pulse Resp BP Pulse Ox 97.7 F 58 L 17 152/70 H 96 12/10/17 18:46 12/10/17 18:46 12/10/17 18:46 12/10/17 18:46 12/10/17 18:46 Results Laboratory Results: 12/10/17 06:06 12/08/17 10:33 12/08/17 12/08/17 10:33 10:33 Creatine Kinase 50 Troponin I < 0.012 Impressions: Foot X-Ray 12/06/17 19:36 IMPRESSION: Soft tissue findings as above, consistent with the history of ulcer. No underlying osteomyelitis. Degenerative great toe changes are otherwise noted. Status: Imported from PACS Qualifiers - * PATIENT BEING DISCHARGED WITH ANY OF THE FOLLOWING DIAGNOSIS: No Plan Time Spent: Less than 30 Minutes
== END 2017-12-10 19:40 | disposition home or self-care (01) | DRG 617 ==
LOC: ER 17:54 → EH 12-07 00:17 → 2N 12-07 02:15
PROVIDERS: ADMIT Internal Medicine; ATTEND Internal Medicine
PROC: 0JBR0ZZ Excision of Left Foot Subcutaneous Tissue and Fascia, Open Approach (ICD-10-PCS; 2017-12-07)
PROC: 3E0F73Z Introduction of Anti-inflammatory into Respiratory Tract, Via Natural or Artificial Opening (ICD-10-PCS; 2017-12-07)
PROC: 0Y6Q0Z1 Detachment at Left 1st Toe, High, Open Approach (ICD-10-PCS; principal; 2017-12-07 11:00)
PROC: 0JBR0ZZ Excision of Left Foot Subcutaneous Tissue and Fascia, Open Approach (ICD-10-PCS; 2017-12-10)
DX: E11.621 Type 2 diabetes mellitus with foot ulcer (principal); L03.116 Cellulitis of left lower limb; E11.52 Type 2 diabetes mellitus with diabetic peripheral angiopathy with gangrene; I96 Gangrene, not elsewhere classified; Z68.41 Body mass index [BMI] 40.0-44.9, adult; E66.01 Morbid (severe) obesity due to excess calories; L97.529 Non-pressure chronic ulcer of other part of left foot with unspecified severity; I10 Essential (primary) hypertension; B95.61 Methicillin susceptible Staphylococcus aureus infection as the cause of diseases classified elsewhere; B95.1 Streptococcus, group B, as the cause of diseases classified elsewhere; Z91.19 Patient's noncompliance with other medical treatment and regimen; Z79.899 Other long term (current) drug therapy; Z60.2 Problems related to living alone; Z88.0 Allergy status to penicillin; Z88.8 Allergy status to other drugs, medicaments and biological substances; Z82.49 Family history of ischemic heart disease and other diseases of the circulatory system; Z82.3 Family history of stroke
CPT/HCPCS: 01470; 36415; 80048; 80202; 82550; 82565; 82962; 83036; 83735; 84100; 84484; 85025; 85027; 85652; 87040; 87070; 87075; 87077; 87186; 87205; 88305; 88311; 93005; 93010; 99285; J0131; J0360; J0692; J1644; J1815; J1885; J2250; J2704; J3010; J3370; J3490; J7030; J7060